=== PATIENT | female | born 1995 | race Caucasian/White ===

== ENCOUNTER 2016-12-05 10:56 | Emergency (ER) ==
[2016-12-05 11:52] VITALS: BP 116/066
[2016-12-05] MEDS ORDERED: ALBUTEROL NEB INH ONE (12:26)
--- NOTE | 2016-12-05 12:31 | PROVIDER DOCUMENTATION ---
HPI-Respiratory General - General Chief Complaint: Flu Symptoms Stated Complaint: FLULIKE SX Time Seen by Provider: 12/05/16 11:55 Source: patient Allergies/Adverse Reactions: Patient Allergies Allergy/AdvReac Type Severity Reaction Status Date / Time Penicillins Allergy Severe ANAPHYLAXIS Verified 12/05/16 11:52 Home Medications: Home Medication List Medication Instructions Recorded Confirmed Last Taken Type Iron Carbonyl/Vit C/Vit B12/FA 1 tab PO DAILY 07/16/16 07/16/16 12/05/16 History [Icar-C Plus] Azithromycin [Zithromax Z-Filipe] 250 mg PO DIRECTED #1 pkg 12/05/16 Unknown Rx Promethazine/Dextromethorphan 118 ml PO TID #1 syrup 12/05/16 Unknown Rx [Promethazine-Dm Syrup] - History of Present Illness-Resp Nature of Presenting Problem: 20 yo female presents to the emergency room with a chief complaint of fever, cough, cold and congestion X 2 days. Reports taking over the counter cough and cold w/o relief. Denies shortness of breath. Quality of Pain: reports: none Severity in ED: reports: moderate Onset/Duration: reports: 2 days ago Timing: reports: still present Cough Quality/Degree: reports: moderate, productive cough Associated Symptoms: reports: cough, fever/chills. denies: shortness of breath Review of Systems - Adult - REVIEW OF SYSTEMS - ADULT Constitutional: denies: chills, fever Eyes: reports: no symptoms reported Ears, Nose, Mouth & Throat: reports: no symptoms reported Cardiovascular: reports: no symptoms reported Respiratory: reports: cough, excessive sputum production. denies: shortness of breath Gastrointestinal: reports: no symptoms reported Genitourinary: reports: no symptoms reported Musculoskeletal: reports: no symptoms reported Integumentary: reports: no symptoms reported Neurological: reports: no symptoms reported Psychiatric: reports: no symptoms reported Endocrine: reports: no symptoms reported Hematologic/Lymphatic: reports: no symptoms reported Allergic/Immunologic: reports: no symptoms reported All Other Systems: Reviewed and Negative Past History - Adult - PAST MEDICAL HISTORY-ADULT Review of Records: reports: Nursing Assessment Review, Medications Reviewed Major Childhood Illnesses: reports: denies history Cardiovascular: reports: denies history Respiratory: reports: denies history Gastrointestinal: reports: denies history Obstetrical/Gynecological: reports: denies history Genitourinary: reports: kidney stones, chronic UTI's Musculoskeletal: reports: denies history Neurological: reports: denies history Psychiatric: reports: other (behavioral problems) Endocrine/Immune: reports: denies history Other Conditions: reports: denies history - PRIOR SURGERIES/PROCEDURES Surgical/Procedure History: reports: other (kidney stones, ureteral stent and lithotripsy) - IMMUNIZATION STATUS Childhood Immunizations: See Nurse Assessment Flu Vaccine: See Nurse Assessment - FAMILY HISTORY Family History: reviewed, not pertinent - SOCIAL HISTORY Smoking: cigarettes, less than 1 pack/day Provider spent 3-5 mins advising pt. on dangers of tobacco.: Discussed manners to quit use, and f/u contacts for add'l counseling. Physical Exam-General - PHYSICAL EXAM-ADULT Initial Vital Signs Reviewed: Yes - CONSTITUTIONAL General Appearance: appears well, alert, no apparent distress - EYES Eyes: PERRL/EOMI, pink conjunctivae - HEAD, EARS, NOSE, MOUTH & THROAT HENMT: normocephalic/atraumatic, moist mucous membranes, normal ENT inspection, TMs normal, pharynx normal - NECK Neck: non-tender, full range of motion, supple - RESPIRATORY Respiratory: wheezing (scattered posterior lung) - GASTROINTESTINAL (ABDOMEN) Abdominal Exam: non tender, soft - SKIN Integumentary: normal color, normal turgor, warm/dry Progress - PLAN OF CARE/RESULTS Progress/Plan/Lab Results: Discussed care, diagnsois and need for follow-up patient verbalized understanding Laboratory Tests 12/05/16 12/05/16 11:45 11:45 Influenza A (Rapid) NEGATIVE Influenza B (Rapid) NEGATIVE Group A Strep Rapid NEGATIVE Orders Category Date Time Status ED: Urine Bedside ORDERED Care 12/05/16 11:55 Active CHEST-2 VIEWS [RAD] Stat Exams 12/05/16 12:[address] Stat Lab 12/05/16 11:[address] Stat Lab 12/05/16 11:45 Completed Albuterol [Albuterol Neb] Med 12/05/16 12:26 Discontinued 2.5 mg INH NOW ONE Dexamethasone [Decadron] Med 12/05/16 13:11 Discontinued 10 mg IM NOW ONE Aerosol Treatments Routine Oth 12/05/16 12:26 Active Aerosol Treatments Stat Oth 12/05/16 12:26 Active Last Vital Signs Temp 98.8 F 12/05/16 11:49 Pulse 96 H 12/05/16 11:49 Resp 18 12/05/16 11:49 BP 116/066 12/05/16 11:49 Pulse Ox 99 12/05/16 11:49 Allergies Penicillins Allergy (Severe, Verified 12/05/16 11:52) ANAPHYLAXIS Orders 12/05/16 11:55 ED: Urine Bedside ORDERED 12/05/16 12:26 Aerosol Treatments Routine Aerosol Treatments Stat 12/05/16 12:29 CHEST-2 VIEWS [RAD] Stat Lab Tests 12/05/16 12/05/16 11:45 11:45 Influenza A (Rapid) NEGATIVE Influenza B (Rapid) NEGATIVE Group A Strep Rapid NEGATIVE Vital Signs - 24 hr 12/05/16 11:49 Temperature 98.8 F Pulse Rate 96 H Respiratory 18 Rate Blood Pressure 116/066 O2 Sat by Pulse 99 Oximetry Departure - Departure Time of Disposition Order: 13:15 DIAGNOSIS: Bronchitis Disposition: HOME 01 Certified Medical Emergency: Emergent Condition: Stable Additional Instructions: ED Follow Up Instructions: You have been treated by a care provider in the Emergency Department. These instructions are being provided to you so you can have an understanding of how to care for yourself upon discharge. Upon discharge from the Emergency Department, you are responsible for making arrangements for follow-up care by a physician of your choice. Take all prescribed medications as directed. Return to the Emergency Department immediately for any new or worsening symptoms. You may call the Physician Referral phone number at [phone] to obtain a list of Physicians who are taking new patients. Prescriptions: Promethazine/Dextromethorphan [Promethazine-Dm Syrup] 118 ml PO TID #1 syrup Azithromycin [Zithromax Z-Filipe] 250 mg PO DIRECTED #1 pkg Attestation - Physician/ KARLEY Attestation Patient care was provided by Advanced Practice Provider:: Yes Advanced Practice Provider:: Balbina Bonner Advanced Practice Provider documentation review:: The Mid-level provider documentation, treatment plan and medical decision making was reviewed by the physician who agrees with all treatment and medical decision making by the MLP.
[2016-12-05] MEDS ORDERED: DECADRON IM ONE (13:11)
--- NOTE | 2016-12-05 13:23 | Diag Imaging Result Document ---
PROCEDURE NAME: CHEST-2 VIEWS - 12/05/2016 FRONTAL AND LATERAL CHEST, TWO VIEWS: COMPARISON: 12/25/2015. FINDINGS: The lungs are well expanded. The heart is not enlarged. The vessels are not distended. There are no infiltrates. No pleural effusions. IMPRESSION: No pneumonia.
== END 2016-12-05 13:32 | disposition home or self-care (01) ==
LOC: P.ED 10:56
DX: J40 Bronchitis, not specified as acute or chronic (principal); R50.9 Fever, unspecified; R05 Cough; R09.3 Abnormal sputum; R06.2 Wheezing; F17.210 Nicotine dependence, cigarettes, uncomplicated; Z71.6 Tobacco abuse counseling
CPT/HCPCS: 71020; 81025; 87081; 87430; 87804; 94640; 96372

== ENCOUNTER 2019-04-04 02:29 | Inpatient (IN) ==
[2019-04-04] MEDS ORDERED: ZOFRAN IV ONE (02:55)
[2019-04-04] MEDS ORDERED: TORADOL IV ONE (02:55)
[2019-04-04 03:15] LABS: BASO% 0.8 % (0.0-0.8); HEMATOCRIT 42.2 % (37.0-47.0); HEMOGLOBIN 14.1 g/dL (12.0-16.0); IMM GRAN# 0.03 X1000 (0.0-0.04); IMM GRAN% 0.2 % (0.0-0.5); LYMPH# 2.73 X1000 (1.2-3.4); LYMPH% 21.9 % (20.5-51.1); MCH 33.3 PG (27-31); MCHC 33.4 g/dL (33-37); MCV 99.5 FL (81-99); MONO# 1.52 X1000 (0.11-0.59); MONO% 12.2 % (1.7-9.3); MPV 9.8 FL (7.4-10.4); NEUT% 64.9 % (42.2-75.2); PLT 251 X1000 (130-400); RBC 4.24 XMIL (4.2-5.4); RDW 13.4 % (11.5-14.5); WBC 12.48 X1000 (4.8-10.8)
--- NOTE | 2019-04-04 03:22 | PROVIDER DOCUMENTATION ---
HPI-Abdominal Pain/GI Problem - General Chief Complaint: Abdominal Pain Stated Complaint: FEVER/ABD PAIN Time Seen by Provider: 04/04/19 02:35 Source: patient Allergies/Adverse Reactions: Patient Allergies Allergy/AdvReac Type Severity Reaction Status Date / Time Penicillins Allergy Severe ANAPHYLAXIS Verified 04/04/19 02:51 Home Medications: Home Medication List Medication Instructions Recorded Confirmed Last Taken Type Famotidine [Pepcid] 20 mg PO BID #10 tab 02/21/19 Unknown Rx Nitrofurantoin Macrocrystal 100 mg PO BID #20 cap 02/21/19 Unknown Rx [Macrodantin] Pantoprazole [Protonix] 40 mg PO DAILY@0700 #30 tab 02/21/19 Unknown Rx - History of Present Illness-ABD Nature of Presenting Problems: Presents to the with complaints of LLQ abdominal pain. She states this has been going on for about 2 days. She states that she has a history of kidney stones but that feels different than this because when she has kidney stones it is normally in her flank and this time it is mostly in her LLQ. She denies any dysuria, diarrhea of constipation. She states that she last had a BM this morning and it was normal and she did not have to strain. She denies any sick contact. She denies any nausea or vomiting. She states that she has had the chills for the past few days as well but did not check her temp. She did not try anything at home for her pain prior to arrival. Review of Systems - Adult - REVIEW OF SYSTEMS - ADULT Constitutional: reports: see HPI, chills, fever Eyes: reports: no symptoms reported Ears, Nose, Mouth & Throat: reports: no symptoms reported Cardiovascular: reports: no symptoms reported Respiratory: reports: no symptoms reported Gastrointestinal: reports: abdominal pain. denies: constipation, diarrhea, nausea, vomiting Genitourinary: reports: see HPI, flank pain. denies: dysuria Musculoskeletal: reports: no symptoms reported Integumentary: reports: no symptoms reported Neurological: reports: no symptoms reported Psychiatric: reports: no symptoms reported Endocrine: reports: no symptoms reported Hematologic/Lymphatic: reports: no symptoms reported Allergic/Immunologic: reports: no symptoms reported All Other Systems: Reviewed and Negative Past History - Adult - PAST MEDICAL HISTORY-ADULT Review of Records: reports: Old Records Reviewed Major Childhood Illnesses: reports: denies history Cardiovascular: reports: denies history Respiratory: reports: denies history Gastrointestinal: reports: denies history Obstetrical/Gynecological: reports: denies history Genitourinary: reports: kidney stones, chronic UTI's Musculoskeletal: reports: denies history Neurological: reports: denies history Psychiatric: reports: other (behavioral problems) Endocrine/Immune: reports: denies history Other Conditions: reports: denies history - PRIOR SURGERIES/PROCEDURES Surgical/Procedure History: reports: other (kidney stones, ureteral stent and lithotripsy) - IMMUNIZATION STATUS Childhood Immunizations: See Nurse Assessment Flu Vaccine: See Nurse Assessment - FAMILY HISTORY Family History: reviewed, not pertinent Physical Exam-General - PHYSICAL EXAM-ADULT Initial Vital Signs Reviewed: Yes - CONSTITUTIONAL General Appearance: alert, mild distress (uncomfortable appearing) - EYES Eyes: PERRL/EOMI - HEAD, EARS, NOSE, MOUTH & THROAT HENMT: normocephalic/atraumatic, moist mucous membranes - NECK Neck: non-tender, full range of motion, supple, normal inspection - RESPIRATORY Respiratory: chest non-tender, lungs clear, normal breath sounds - CARDIOVASCULAR Cardiovascular: normal peripheral pulses, no murmur, tachycardia - GASTROINTESTINAL (ABDOMEN) Abdominal Exam: normal bowel sounds, soft, tenderness (LLQ) - MUSCULOSKELETAL Back Exam: normal inspection, no CVA tenderness Extremity: normal range of motion, non-tender, normal gait - SKIN Integumentary: normal color, warm/dry - NEUROLOGIC Neurologic: grossly normal, no motor/sensory deficits - PSYCHIATRIC Psych/Mental Status: normal mood/affect, oriented x 3 Progress - PLAN OF CARE/RESULTS Progress/Plan/Lab Results: Vital Signs - 8 hr 04/04/19 02:40 Temperature 101.3 F H Pulse Rate 129 H Respiratory Rate 24 Blood Pressure 141/111 O2 Sat by Pulse Oximetry 98 Bedside Urine ED: Urine Bedside Start: 04/04/19 02:51 Freq: ORDERED Status: Active Protocol: Activity Type Activity Date Activity User E-Sign Co-Sign Detail Recorded Client Recorded Date Recorded By Document 04/04/19 03:00 [id number] 04/04/19 03:01 [id number] 04/04/19 03:00 Point of Care [Bedside Point of Care] -Lot # [id number] - Results Negative -Control Line Visible? Yes Laboratory Results - last 24 hr 04/04/19 02:58 WBC 12.48 H RBC 4.24 Hgb 14.1 Hct 42.2 MCV 99.5 H MCH 33.3 H MCHC 33.4 RDW Std Deviation 13.4 Plt Count 251 MPV 9.8 Immature Gran % (Auto) 0.2 Neut % (Auto) 64.9 Lymph % (Auto) 21.9 Polk % (Auto) 12.2 H Eos % (Auto) 0.0 Baso % (Auto) 0.8 Immature Gran # (Auto) 0.03 Neut # (Auto) 8.10 H Lymph # (Auto) 2.73 Polk # (Auto) 1.52 H Eos # (Auto) 0.00 Baso # (Auto) 0.10 Orders Category Date Time Status ED: Urine Bedside ORDERED Care 04/04/19 02:51 Active NPO Diet 04/04/19 02:[address] ABD/PELVIS W/IV CONT ONLY [CT] Stat Exams 04/04/19 02:55 Ordered CBC WITH DIFF [HEME] Stat Lab 04/04/19 02:58 Completed COMPREHENSIVE METABOLIC PANEL [CHEM] Stat Lab 04/04/19 02:58 Received LIPASE [CHEM] Stat Lab 04/04/19 02:58 Received URINE DRUG SCREEN PL Stat Lab 04/04/19 02:52 Received ua [URINALYSIS PL W/POSS RFLX CULT] [URINALYSIS] Stat Lab 04/04/19 02:52 Received Ketorolac [Toradol] Med 04/04/19 02:55 Discontinued 30 mg IV NOW ONE Ondansetron [Zofran] Med 04/04/19 02:55 Discontinued 4 mg IV NOW ONE Abd Pain/OB <20 weeks Stat Oth 04/04/19 02:[address] showing left pyelo. Patient started on rocephin already which is appropriate. her fever trended down and her pain is better controlled. Spoke to Dr Contreras who accepted patient for admission. Result Diagrams: 04/04/19 02:58 04/04/19 02:58 - CT/MRI 1 CT Study: Abdomen (Left pyelonephritis) - CONSULTS/PCP/HOSPITALIST Notification #1 *Consult/PCP/Hospitalist*: Dr Contreras Time Discussed: 06:07 Consult Disposition: Admit Departure - Departure Date of Disposition Decision: 04/04/19 Time of Disposition Decision: 06:08 DIAGNOSIS: Pyelonephritis, Methamphetamine abuse Sepsis Qualifiers: Sepsis type: sepsis due to unspecified organism Qualified Code(s): A41.9 - Sepsis, unspecified organism Disposition: ADMITTED INPATIENT 09 Certified Medical Emergency: Emergent Condition: Stable Referrals and Follow-Ups: None,PCP [Primary Care Provider] - - Critical Care Note This patient required my direct & personal management of CC.: Yes Total Time (mins): 65 Critical Care Statement: This patient required my direct personal management to treat or rule out processes, the absence of which, could potentiallly result in sudden, clinically significant life or limb threatening deterioration. Attestation - Physician/ KARLEY Attestation Patient care was provided by Advanced Practice Provider:: No The physician spent face to face time with patient:: Yes Advanced Practice Provider documentation review:: Supervising physician onsite and consulted in the evaluation and care of this patient. The physician did have a face to face encounter with the patient.
[2019-04-04] MEDS ORDERED: ROCEPHIN 1 GM in NS 50 ML IV ONE (03:30)
[2019-04-04 03:31] LABS: UR AMPHETAMINES QUAL NONE DETECTED (NONE DETECT); UR BARBITUATES QUAL NONE DETECTED (NONE DETECT); UR BENZODIAZEPIN QUAL NONE DETECTED (NONE DETECT); UR COCAINE QUAL NONE DETECTED (NONE DETECT); UR METHADONE QUAL NONE DETECTED (NONE DETECT); UR METHAMPHETAMINE QUAL PRESUMPTIVE POSITIVE (NONE DETECT); UR OPIATES QUAL NONE DETECTED (NONE DETECT); UR OXYCODONE QUAL NONE DETECTED (NONE DETECT); UR PCP QUAL NONE DETECTED (NONE DETECT)
[2019-04-04 03:32] LABS: UR CANNABINOIDS QUAL PRESUMPTIVE POSITIVE (NONE DETECT); UR PROPOXYPHENE QUAL NONE DETECTED (NONE DETECT); UR TCA QUAL NONE DETECTED (NONE DETECT)
[2019-04-04 03:33] LABS: AGAP 14; ALBUMIN 4.6 g/dL (3.5-5.0); ALKALINE PHOSPHATASE 78 U/L (32-104); BUN 11 mg/dL (8-22); CALCIUM 9.5 mg/dL (8.8-10.2); CHLORIDE 98 mmol/L (98-107); COSMO 270; CREATININE 0.7 mg/dL (0.5-0.9); ESTIMATED GFR > 60; GLUCOSE 102 mg/dL (70-104); GOT 18 U/L (10-30); GPT 8 U/L (10-36); LIPASE 21 U/L (13-60); POTASSIUM 3.6 mmol/L (3.5-5.1); SODIUM 135 mmol/L (136-145); TCO2 23 mmol/L (25-35); TOTAL PROTEIN 8.2 g/dL (6.3-8.3)
[2019-04-04 03:36] LABS: BILIRUBIN URINE NEGATIVE (NEGATIVE); BLOOD URINE 1+ (NEGATIVE); CLARITY SL. CLOUDY (CLEAR); COLOR YELLOW; GLUCOSE URINE NEGATIVE (NEGATIVE); KETONE URINE 2+(Moderate) mg/dL (NEGATIVE); LEUKOCYTES URINE 2+ (NEGATIVE); NITRITE URINE NEGATIVE (NEGATIVE); PROTEIN URINE 1+(30 mg/dL) mg/dL (NEGATIVE); UROBILINOGEN URINE 1 mg/dL
[2019-04-04] MEDS ORDERED: NS 1,000 ML IV ONE ×3 (03:41→06:08)
[2019-04-04 03:42] LABS: URINE WBC TNTC /HPF (<10)
[2019-04-04 03:44] LABS: URINE BACTERIA 4+ /HFP; URINE CAST NONE SEEN /LPF; URINE CRYSTAL NONE SEEN /HPF; URINE EPITHELIAL CELLS <10 /HPF (<10); URINE SOURCE CLEAN CATCH; URINE YEAST NONE SEEN /HPF
[2019-04-04 03:45] LABS: URINE RBC <10 /HPF (<10)
[2019-04-04] MEDS ORDERED: TYLENOL PO PRN (06:08)
--- NOTE | 2019-04-04 08:00 | Diag Imaging Result Doc PS360 ---
CT ABD/PELVIS W/IV CONT ONLY - 04/04/2019 INDICATION: colitis COMPARISON: 07/27/2015 FINDINGS: The lung bases are clear and the heart size is normal. There is significant patchy hypoenhancement of the left kidney. No hydronephrosis or hydroureter. Stable right renal cyst at the upper pole. The liver, gallbladder, spleen, pancreas, and adrenals are normal. No bowel obstruction or inflammation. Urinary bladder, uterus, and rectum are normal. Bones are intact and well mineralized. IMPRESSION: Left-sided pyelonephritis. No urinary obstruction. This exam was performed using automated exposure control, adjustment of mA or kV according to patient size, and/or use of iterative reconstruction technique Electronically signed by Glynn Cuevas 04/04/2019 7:57 AM
[2019-04-04] MEDS ORDERED: ZOFRAN IV PRN (11:30)
[2019-04-04] MEDS: NS 1,000 ML IV SCH ×2 (11:53→15:28)
[2019-04-04] MEDS: NICODERM PATCH TD SCH (12:48)
[2019-04-04] MEDS: TORADOL IV PRN ×2 (13:38→23:16)
--- NOTE | 2019-04-04 13:57 | HISTORY AND PHYSICAL ---
PRIMARY CARE PROVIDER: None. CHIEF COMPLAINT: Fever and abdominal pain. HISTORY OF PRESENT ILLNESS: This is a 23-year-old female who presented to the emergency department with complaints of left lower quadrant abdominal pain and fever. She states it has been going on for about 2 days. She did have a history of kidney stones, but that normally was in her flank, and this time it was in her left lower quadrant. She denied any dysuria, diarrhea, or constipation. She did state she has also had some chilling as well. PAST MEDICAL HISTORY: Includes positive for kidney stones and chronic UTIs, substance abuse and anxiety PAST SURGICAL HISTORY: Includes wisdom teeth and kidney stones with placement of a ureteral stent and lithotripsy. FAMILY HISTORY: Includes a grandmother who was positive for CAD. SOCIAL HISTORY: The patient is a smoker, and smokes approximately 1 pack a day. The patient denies alcohol use. The patient denies any illicit drug use, but UDS was positive for cannabinoids and methamphetamines. ALLERGIES: Penicillins, and her reaction is anaphylaxis. HOME MEDICATIONS: To be updated and reconciled. REVIEW OF SYSTEMS: General: Positive for fever. Positive chills. HEENT: Denies congestion, headaches, vision changes, hoarseness, dizziness, neck pain. Endocrine: Denies excessive thirst, urination, or intolerance to heat and cold. Cardiovascular: Denies palpitations, chest pain, dyspnea on exertion, or lower extremity edema. Respiratory: Denies cough, dyspnea, or shortness of breath. GI: Positive for lower quadrant pain. : Denies any dysuria, burning, or frequency. Musculoskeletal: Denies muscle aches. Neurologic: Denies syncope, dizziness, tremors, vertigo. Hematological: Denies bruising. Psychiatric: Denies any current psychiatric history. Skin: No rashes or lesions noted. IMAGING AND LABORATORY DATA: WBCs of 12.48, hemoglobin and hematocrit are 14.1 and 42.2, with platelets at 251,000. Sodium 135, potassium 3.6, chloride 98, BUN of 11, creatinine 0.7. AST of 18, ALT of 8. Urine was negative for nitrates. UDS shows positive methamphetamines, positive cannabinoids. CT of abdomen and pelvis, impression: Left-sided pyelonephritis. No urinary obstruction. PHYSICAL EXAMINATION: VITAL SIGNS: Temperature of 98.3 degrees, pulse rate of 62, respiratory rate 17, blood pressure 128/76, saturating 100% on room air. GENERAL: This is a well-appearing, 23-year-old, female. HEENT: Normocephalic. PERRLA. Mucous membranes were moist. NECK: Supple. No lymphadenopathy. Trachea midline. No JVD. No bruits. CARDIOVASCULAR: No murmurs, gallops, rubs. Rate and rhythm are regular. RESPIRATORY: Lung sounds are clear to auscultation in all tuttle. Respirations nonlabored. GASTROINTESTINAL: Abdomen is soft. Bowel sounds were present x4 quadrants. The patient did have slight left lower quadrant pain with palpation. GENITOURINARY: No CVA tenderness noted. NEUROLOGIC: Cranial nerves II through XII are grossly intact. MUSCULOSKELETAL: Strength is 5/5 in all 4 extremities. SKIN: Warm, dry, and intact. ASSESSMENT: 1. Sepsis. 2. Pyelonephritis. 3. Tobacco abuse. PLAN: We will admit to [place]. Activity up ad annemarie. Vital signs. Regular diet. blood and urine cultures. Tylenol as needed for pain. Toradol 30 mg every 6 hours as needed for pain. Will continue Rocephin 1 gram every 24 hours. normal saline at 125 mL/h. nicotine patch. Further recommendations will be pending per patient's clinical course and response to therapy. Dictated by CAMERON Encinas for Sen Contreras MD cc: Sen Contreras MD [facility]
--- NOTE | 2019-04-04 17:58 | PROGRESS NOTE ---
DATE: 04/04/2019 SUBJECTIVE: Patient has no major complaints. OBJECTIVE: Vital signs: Blood pressure 131/70, heart rate of 88, respiratory rate 20, temperature 98.6 degrees, T-max 101.3 degrees. Abdomen: She does have some left-sided flank tenderness. ASSESSMENT AND PLAN: In any case, patient came in with flank pain. She was found to have pyelonephritis and she was admitted for treatment. She will be empirically placed on Rocephin until we can get our urine culture results. Anticipate discharge hopefully in the next 1 to 2 days, pending clinical status. This is a [id number] encounter note with CAMERON Encinas. cc: Sen Contreras MD
[2019-04-04] MEDS: TYLENOL PO PRN (22:07)
[2019-04-05] MEDS: NS 1,000 ML IV SCH ×3 (00:58→17:20)
[2019-04-05] MEDS: ROCEPHIN 1 GM in NS 50 ML IV SCH (04:29)
[2019-04-05] MEDS ORDERED: ROCEPHIN 1 GM in NS 50 ML IV SCH (04:30)
[2019-04-05 07:25] LABS: BASO# 0.04 X1000 (0.0-0.2); BASO% 0.6 % (0.0-0.8); EOS# 0.11 X1000 (0.0-0.7); EOS% 1.6 % (0.0-10.0); HEMATOCRIT 36.4 % (37.0-47.0); HEMOGLOBIN 12.2 g/dL (12.0-16.0); IMM GRAN# 0.02 X1000 (0.0-0.04); IMM GRAN% 0.3 % (0.0-0.5); LYMPH# 2.51 X1000 (1.2-3.4); LYMPH% 36.6 % (20.5-51.1); MCH 33.8 PG (27-31); MCHC 33.5 g/dL (33-37); MCV 100.8 FL (81-99); MONO# 0.89 X1000 (0.11-0.59); MPV 10.2 FL (7.4-10.4); NEUT# 3.28 X1000 (1.4-6.5); NEUT% 47.9 % (42.2-75.2); PLT 193 X1000 (130-400); RBC 3.61 XMIL (4.2-5.4); RDW 13.1 % (11.5-14.5); WBC 6.85 X1000 (4.8-10.8)
[2019-04-05 07:28] LABS: AGAP 9; BUN 6 mg/dL (8-22); CALCIUM 7.6 mg/dL (8.8-10.2); CHLORIDE 110 mmol/L (98-107); COSMO 279; CREATININE 0.5 mg/dL (0.5-0.9); ESTIMATED GFR > 60; GLUCOSE 100 mg/dL (70-104); POTASSIUM 3.3 mmol/L (3.5-5.1); SODIUM 141 mmol/L (136-145); TCO2 22 mmol/L (25-35)
[2019-04-05] MEDS ORDERED: KLOR-CON PO ONE (09:17)
[2019-04-05] MEDS: NICODERM PATCH TD SCH (09:21)
[2019-04-05] MEDS: TORADOL IV PRN (09:28)
[2019-04-05] MEDS ORDERED: GENTAMICIN IV PER PHARMACY MISC SCH (11:45)
[2019-04-05] MEDS ORDERED: GENTAMICIN IV SCH (12:00)
[2019-04-05] MEDS ORDERED: NS IV SCH (12:00)
[2019-04-05] MEDS: TYLENOL PO PRN (17:20)
[2019-04-05] MEDS ORDERED: NORCO-5 PO PRN (18:43)
--- NOTE | 2019-04-05 19:00 | PROGRESS NOTE ---
DATE: 04/05/2019 SUBJECTIVE: The patient is still having some pain. OBJECTIVE: Vital signs: Blood pressure is 118/76, heart rate 72, respiratory rate 20, temperature 98.4 degrees. Cardiovascular: Regular rate and rhythm. Pulmonary: Bilateral breath sounds. Clear to auscultation GI: Was soft, nontender, nondistended. Bowel sounds were positive. Extremities: Have no clubbing or cyanosis. Lymphatic exam: No peripheral edema. She does have some CVA tenderness. LABORATORY DATA: White count is 6, hemoglobin and hematocrit 12 and 36, platelets of 193,000. White count is down from 12. Potassium 3.3. Micro shows a gram-negative goldie in her urine. PROBLEM LIST: 1. Pyelonephritis with gram-negative goldie urinary tract infection. We will continue Rocephin. I have added gentamicin. She had fever last night, so we will watch her another day. Also, we will get culture results. If she is afebrile and improved, could discharge tomorrow on oral antibiotics. 2. Hypokalemia. We will supplement and follow. DISPOSITION: Pending her clinical status. cc: Sen Contreras MD
[2019-04-06] MEDS: ROCEPHIN 1 GM in NS 50 ML IV SCH ×2 (03:19→05:45)
[2019-04-06] MEDS: NS 1,000 ML IV SCH (03:20)
[2019-04-06 07:32] VITALS: BP 113/71
[2019-04-06 07:51] LABS: BASO# 0.04 X1000 (0.0-0.2); BASO% 0.6 % (0.0-0.8); EOS# 0.14 X1000 (0.0-0.7); EOS% 2.1 % (0.0-10.0); HEMATOCRIT 36.8 % (37.0-47.0); HEMOGLOBIN 12.2 g/dL (12.0-16.0); IMM GRAN# 0.01 X1000 (0.0-0.04); IMM GRAN% 0.2 % (0.0-0.5); LYMPH# 2.73 X1000 (1.2-3.4); LYMPH% 41.8 % (20.5-51.1); MCH 33.6 PG (27-31); MCHC 33.2 g/dL (33-37); MCV 101.4 FL (81-99); MONO# 0.54 X1000 (0.11-0.59); MONO% 8.3 % (1.7-9.3); MPV 10.2 FL (7.4-10.4); NEUT# 3.07 X1000 (1.4-6.5); PLT 219 X1000 (130-400); RBC 3.63 XMIL (4.2-5.4); RDW 12.9 % (11.5-14.5); WBC 6.53 X1000 (4.8-10.8)
[2019-04-06 08:10] LABS: AGAP 10; BUN 3 mg/dL (8-22); CALCIUM 8.3 mg/dL (8.8-10.2); CHLORIDE 110 mmol/L (98-107); COSMO 279; CREATININE 0.5 mg/dL (0.5-0.9); ESTIMATED GFR > 60; GLUCOSE 114 mg/dL (70-104); POTASSIUM 4.3 mmol/L (3.5-5.1); SODIUM 141 mmol/L (136-145); TCO2 21 mmol/L (25-35)
[2019-04-06 08:44] LABS: EOS 2 % (1-10); LYMPHS 41 % (21-51); MONO 7 % (1-9); SEGS 50 % (42-75)
[2019-04-06] MEDS ORDERED: LEVAQUIN PO SCH (09:00)
--- NOTE | 2019-04-07 00:27 | DISCHARGE SUMMARY ---
ADMISSION DATE: 04/04/2019 DISCHARGE DATE: 04/06/2019 DISCHARGE DIAGNOSES: 1. Pyelonephritis. 2. Escherichia coli urinary tract infection, pansensitive. 3. Nausea and vomiting, resolved. 4. Abdominal pain, resolved. CONSULTATIONS: None. PROCEDURES: None. BRIEF HOSPITAL COURSE: The patient is a 23-year-old female who was admitted , treated in usual fashion, placed on antibiotics and culture was obtained. On discharge, the culture grew ESBL negative E coli pansensitive, therefore she will be discharged home on Levaquin. DISPOSITION: The patient will be discharged home on Levaquin. She will follow up outpatient with treatment facility of choice if symptoms worsen or return. She will continue Levaquin for a total 7 days. TIME SPENT: Greater than 30 minutes was spent in total care. cc: Jr Fortnue MD
== END 2019-04-06 13:54 | disposition home or self-care (01) | DRG 872 ==
LOC: P.ED 02:29 → SUATTDRO 08:09 → P.EDIPHOLD 08:09 → P.MEDSURG 15:32
PROVIDERS: ATTEND Family Medicine
CPT/HCPCS: 74177; 80048; 80053; 80104; 80170; 80301; 80305; 81001; 83605; 83690; 85025; 87040; 87077; 87088; 87186; A9270; G0431; G0434; G0477; J0696; J1580; J1885; J2405; J7030; Q9967